=== PATIENT | female | born 1970 | race Caucasian/White ===

== ENCOUNTER 2017-05-17 07:35 | Emergency (ER) | payer OTHER ==
[~2017-05-17] VITALS: Ht 154.9 cm; Wt 72.7 kg
[~2017-05-17 07:35] MED LIST: LISI-660 PO; METF500T4 PO; SITA25 PO; VITAD400 PO
[2017-05-17] MEDS ORDERED: PROZ10 PO (07:44)
[2017-05-17 07:48] LABS: GLUCOSE,POINT OF CARE 348 MG/DL (70-110)
[2017-05-17] MEDS ORDERED: SODIUM CHLORIDE 0.9% 1,000 ML IV ONE (08:15)
[2017-05-17] MEDS ORDERED: ONDANSETRON HCL 4 MG/2 ML VIAL IVP ONE (08:15)
[2017-05-17] MEDS ORDERED: KETOROLAC TROMETHAMINE 30 MG/ML VIAL IVP ONE (08:15)
[2017-05-17 08:45] LABS: BASOPHILS % (AUTO) 0.6 % (0.0-2.0); EOSINOPHILS % (AUTO) 1.1 % (1.0-6.0); HEMATOCRIT 41.7 % (36-46); HEMOGLOBIN 14.4 g/dL (12.0-16.0); LYMPHOCYTES # (AUTO) 1.4 K/uL (1.0-4.8); LYMPHOCYTES % (AUTO) 23.9 % (22.0-44.0); MEAN CORPUSCULAR HGB CONC 34.5 G/dL (31.0-37.0); MEAN CORPUSCULAR VOLUME 87 fL (80-100); MONOCYTES # (AUTO) 0.4 K/uL (0.1-1.0); MONOCYTES % (AUTO) 7.8 % (2.0-9.0); NEUTROPHILS # (AUTO) 3.8 K/uL (1.8-7.7); NEUTROPHILS % (AUTO) 66.6 % (40.0-70.0); PLATELET COUNT (AUTO) 225 K/uL (150-450); RED CELL DISTRIBUTION WIDTH 12.6 % (11.5-14.5); WHITE BLOOD COUNT (AUTO) 5.7 K/uL (4.5-11.0)
[2017-05-17 08:52] LABS: ANION GAP 9 mmol/L (8-16); CALCIUM, TOTAL 8.6 mg/dL (8.8-10.5); CARBON DIOXIDE 27 mmol/L (22-29); CHLORIDE 101 mmol/L (98-107); CREATININE 0.82 mg/dL (0.60-1.30); GLOMERULAR FILTR. RATE CALC > 60 mL/min (>60); SODIUM SERUM 137 mmol/L (136-145); UREA NITROGEN, BLOOD 12 mg/dL (7-18)
[2017-05-17 08:58] LABS: ALANINE AMINOTRANSFERASE 27 U/L (12-78); ALBUMIN 3.8 g/dL (3.4-5.0); ASPARTATE AMINOTRANSFERASE 12 U/L (15-37); BILIRUBIN,TOTAL 0.8 mg/dL (0.1-1.0); TOTAL PROTEIN, SERUM 7.4 g/dL (6.4-8.2)
[2017-05-17] MEDS ORDERED: INSULIN REGULAR, HUMAN 100 UNITS/ML IVP ONE (09:45)
[2017-05-17 09:47] LABS: APPEARANCE,URINE CLEAR (CLEAR); GLUCOSE, URINE (UA) >=1000 mg/dL (NEGATIVE); KETONES,URINE NEGATIVE (NEGATIVE); LEUKOCYTE ESTERASE ,URINE NEGATIVE (NEGATIVE); OCCULT BLOOD,URINE NEGATIVE (NEGATIVE); PROTEIN,URINE NEGATIVE (NEGATIVE)
[2017-05-17 09:53] LABS: ADD UA MICROSCOPIC YES
[2017-05-17 09:54] LABS: RBC,URINE None Seen /HPF (0-2); SQUAMOUS EPITHELIAL CELL,UR Moderate /LPF (None Seen); WBC,URINE None Seen /HPF (0-5)
[2017-05-17 10:23] VITALS: BP 131/85
== END 2017-05-17 11:02 | disposition home or self-care (01) ==
LOC: EMS 07:38
DX: J40 Bronchitis, not specified as acute or chronic (principal); R10.11 Right upper quadrant pain; R11.2 Nausea with vomiting, unspecified; E11.65 Type 2 diabetes mellitus with hyperglycemia; J45.909 Unspecified asthma, uncomplicated; I10 Essential (primary) hypertension; Z79.4 Long term (current) use of insulin; Z77.22 Contact with and (suspected) exposure to environmental tobacco smoke (acute) (chronic)
CPT/HCPCS: 36415; 71010; 76700; 80053; 81001; 82962; 83690; 84703; 85025; 96361; 96374; 96375; 99285; J1815; J1885; J2405; J7030

== ENCOUNTER 2019-03-21 07:19 | Emergency (ER) | payer MEDICAID, OTHER ==
[~2019-03-21] VITALS: Ht 154.9 cm; Wt 68.2 kg
[~2019-03-21 07:19] MED LIST changes: +METF-960 PO; -METF500T4 PO; +PROZ10 PO
[2019-03-21 07:34] LABS: GLUCOSE,POINT OF CARE 323 MG/DL (70-110)
[2019-03-21] MEDS ORDERED: CYCLOBENZAPRINE HCL 10 MG TABLET PO ONE (08:00)
[2019-03-21] MEDS ORDERED: KETOROLAC TROMETHAMINE 30 MG/ML VIAL IVP ONE (08:00)
[2019-03-21] MEDS ORDERED: SODIUM CHLORIDE 0.9% 1,000 ML IV ONE (08:00)
[2019-03-21 09:54] LABS: APPEARANCE,URINE CLEAR (CLEAR); BILIRUBIN,URINE NEGATIVE (NEGATIVE); GLUCOSE, URINE (UA) >=1000 mg/dL (NEGATIVE); KETONES,URINE NEGATIVE (NEGATIVE); LEUKOCYTE ESTERASE ,URINE NEGATIVE (NEGATIVE); NITRATE,URINE NEGATIVE (NEGATIVE); OCCULT BLOOD,URINE NEGATIVE (NEGATIVE); PH,URINE 6.5 (5.0-8.0); PROTEIN,URINE NEGATIVE (NEGATIVE); UROBILINOGEN,URINE 0.2 mg/dL (<=1.0)
[2019-03-21 10:11] LABS: BACTERIA,URINE None Seen /HPF (None Seen); RBC,URINE None Seen /HPF (0-2); SQUAMOUS EPITHELIAL CELL,UR Moderate /LPF (None Seen); WBC,URINE None Seen /HPF (0-5)
[2019-03-21 10:35] VITALS: BP 108/70
[2019-03-21 11:19] LABS: GLUCOSE,POINT OF CARE 260 MG/DL (70-110)
== END 2019-03-21 10:39 | disposition home or self-care (01) ==
LOC: EMS 07:22
DX: M54.5 Low back pain (principal); J45.909 Unspecified asthma, uncomplicated; E11.9 Type 2 diabetes mellitus without complications; I10 Essential (primary) hypertension; Z77.22 Contact with and (suspected) exposure to environmental tobacco smoke (acute) (chronic); Z79.84 Long term (current) use of oral hypoglycemic drugs; Z79.899 Other long term (current) drug therapy
CPT/HCPCS: 81001; 82962; 96374; 99283; J1885; J7030

== ENCOUNTER 2024-12-17 12:16 | Inpatient (IN) | payer MEDICARE, MEDICAID ==
[~2024-12-17] VITALS: Ht 167.6 cm; Wt 66.2 kg
[~2024-12-17 12:16] MED LIST changes: +CHOL400T56 PO; +FLUO10CA24 PO; -LISI-660 PO; +LISI-892 PO; +METF-1211 PO; -METF-960 PO; -PROZ10 PO; -VITAD400 PO
[2024-12-17 12:45] VITALS: O2SAT 98
[2024-12-17] MEDS ORDERED: ZOLPIDEM TARTRATE 10 MG TABLET PO PRN (12:45)
[2024-12-17] MEDS ORDERED: GABA-1404 PO (12:56)
[2024-12-17] MEDS ORDERED: TOPI-97 PO (12:57)
[2024-12-17] MEDS ORDERED: MELO-107 PO (12:57)
[2024-12-17] MEDS ORDERED: DOCU100C33 PO (12:57)
[2024-12-17] MEDS ORDERED: BENZ-247 PO (12:57)
[2024-12-17] MEDS ORDERED: DICL100G60 TP (12:57)
[2024-12-17] MEDS ORDERED: CHOL100062 PO (12:57)
[2024-12-17] MEDS ORDERED: LISI10TA24 PO (12:57)
[2024-12-17] MEDS ORDERED: CARI3CAP PO (12:57)
[2024-12-17] MEDS ORDERED: BACL10TA PO (12:57)
[2024-12-17] MEDS ORDERED: METF-446 PO (12:57)
[2024-12-17] MEDS ORDERED: ATOR10TA69 PO (12:57)
[2024-12-17] MEDS ORDERED: FLUO-418 PO (12:57)
[2024-12-17 13:06] LABS: BASOPHILS % (AUTO) 1.2 % (0.0-2.0); HEMATOCRIT 38.9 % (36-46); HEMOGLOBIN 12.8 g/dL (12.0-16.0); LYMPHOCYTES # (AUTO) 1.6 K/uL (1.0-4.8); LYMPHOCYTES % (AUTO) 26.4 % (22.0-44.0); MEAN CORPUSCULAR HEMOGLOBIN 28.6 pg (26.0-34.0); MEAN CORPUSCULAR VOLUME 87 fL (80-100); MONOCYTES # (AUTO) 0.5 K/uL (0.1-1.0); MONOCYTES % (AUTO) 7.8 % (2.0-9.0); NEUTROPHILS # (AUTO) 3.8 K/uL (1.8-7.7); NEUTROPHILS % (AUTO) 61.6 % (40.0-70.0); PLATELET COUNT (AUTO) 206 K/uL (150-450); RED BLOOD CELL COUNT(AUTO) 4.48 MIL/uL (4.00-5.20); RED CELL DISTRIBUTION WIDTH 13.1 % (11.5-14.5); WHITE BLOOD COUNT (AUTO) 6.2 K/uL (4.5-11.0)
[2024-12-17 13:14] LABS: ANION GAP 8 mmol/L (8-16); CALCIUM, TOTAL 8.9 mg/dL (8.8-10.5); CARBON DIOXIDE 26 mmol/L (22-29); CHLORIDE 107 mmol/L (98-107); GLOMERULAR FILTR. RATE CALC > 60 mL/min (>60); GLUCOSE,RANDOM 138 mg/dL (70-110); POTASSIUM 4.2 mmol/L (3.5-5.1); SODIUM SERUM 141 mmol/L (136-145); UREA NITROGEN, BLOOD 14 mg/dL (7-18)
[2024-12-17 13:28] LABS: ALCOHOL, BLOOD (SERUM) < 3 mg/dL (0-10)
[2024-12-17 14:15] LABS: COVID AG,FIA SOURCE NASAL SWAB
[2024-12-17 14:59] LABS: SARS-COV2 (COVID) ANTIGEN,FIA Negative (Negative)
[2024-12-17] MEDS: LORazepam 2 MG TABLET PO PRN (16:57)
[2024-12-17] MEDS: HALOPERIDOL 5 MG TABLET PO PRN (16:57)
[2024-12-17] MEDS: BACITRACIN 28 GM OINTMENT TP ONE (17:11)
[2024-12-17 17:35] LABS: APPEARANCE,URINE HAZY (CLEAR); BILIRUBIN,URINE NEGATIVE (NEGATIVE); COLOR,URINE LIGHT YELLOW (YELLOW); GLUCOSE, URINE (UA) NEGATIVE (NEGATIVE); KETONES,URINE NEGATIVE (NEGATIVE); LEUKOCYTE ESTERASE ,URINE TRACE (NEGATIVE); NITRATE,URINE NEGATIVE (NEGATIVE); OCCULT BLOOD,URINE NEGATIVE (NEGATIVE); PROTEIN,URINE NEGATIVE (NEGATIVE); UROBILINOGEN,URINE <=1.0 mg/dL (<=1.0)
[2024-12-17 17:44] LABS: ALCOHOL, URINE DRUG SCREEN NEGATIVE (NEGATIVE); AMPHET/METH SCREEN,URINE POSITIVE (NEGATIVE); BARBITURATE SCREEN, URINE NEGATIVE (NEGATIVE); BENZODIAZEPINES SCREEN,URINE NEGATIVE (NEGATIVE); CANNABINOID SCREEN,URINE NEGATIVE (NEGATIVE); COCAINE SCREEN,URINE NEGATIVE (NEGATIVE); METHADONE SCREEN, URINE NEGATIVE (NEGATIVE); OPIATE SCREEN,URINE NEGATIVE (NEGATIVE); PHENCYCLIDINE SCREEN,URINE NEGATIVE (NEGATIVE)
[2024-12-17 17:49] LABS: BACTERIA,URINE Many /HPF (None Seen); RBC,URINE 0-2 /HPF (0-2); SQUAMOUS EPITHELIAL CELL,UR Moderate /LPF (None Seen)
[2024-12-17 21:16] VITALS: BP 117/72; PULSE 69; RESP 18; TEMP 97.8; O2SAT 98
[2024-12-17] MEDS ORDERED: INFLUENZA VIRUS VACCINE TVS (6MO+) 2024-25/PF 45 MCG/0.5 ML SYRINGE IM. ONE (21:30)
[2024-12-18 00:51] LABS: GLUCOMETER DEV NAME(LOC) BV3S.; GLUCOSE,POINT OF CARE 102 MG/DL (70-110)
[2024-12-18 08:13] VITALS: RESP 16
[2024-12-18 09:14] LABS: HEMOGLOBIN A1C 7.5 % (3.8-5.6)
[2024-12-18 09:19] LABS: CHOL/HDL RATIO 1.8 (3.9-5.7)
[2024-12-18] MEDS ORDERED: ONDANSETRON 4 MG TABLET PO PRN (09:45)
[2024-12-18] MEDS ORDERED: LOPERAMIDE HCL 2 MG CAPSULE PO PRN (09:45)
[2024-12-18] MEDS ORDERED: MAG HYDROX/ALUMINUM HYD/SIMETH ES 30 ML SUSPENSION UDCUP PO PRN (09:45)
[2024-12-18] MEDS ORDERED: PETROLATUM,WHITE 28 GM JELLY TP PRN (09:45)
[2024-12-18] MEDS ORDERED: NICOTINE 14 MG/24 HOUR PATCH TD PRN (09:45)
[2024-12-18] MEDS ORDERED: MAGNESIUM HYDROXIDE SUSPENSION 30 ML UDCUP PO PRN (09:45)
[2024-12-18] MEDS ORDERED: CloNIDine HCL 0.1 MG TABLET PO PRN (09:45)
[2024-12-18] MEDS ORDERED: IBUPROFEN 400 MG TABLET PO PRN (09:45)
[2024-12-18] MEDS ORDERED: ACETAMINOPHEN 325 MG TABLET PO PRN (09:45)
[2024-12-18] MEDS ORDERED: DOCUSATE SODIUM 100 MG CAPSULE PO PRN (09:45)
[2024-12-18] MEDS ORDERED: GuaiFENesin/D-METHORPHAN [SUGAR-FREE] 200-20MG/10 ML SYRUP UDCUP PO PRN (09:45)
[2024-12-18 13:12] VITALS: RESP 17
[2024-12-18] MEDS: MELOXICAM 7.5 MG TABLET PO PRN (13:12)
[2024-12-18] MEDS: BENZTROPINE MESYLATE 1 MG TABLET PO SCH (13:12)
[2024-12-18] MEDS: GABAPENTIN 300 MG CAPSULE PO SCH (13:13)
[2024-12-18 14:12] VITALS: RESP 18
[2024-12-18] MEDS: MetFORMIN HCL 500 MG TABLET PO SCH (16:46)
[2024-12-18] MEDS: CEPHALEXIN MONOHYDRATE 500 MG CAPSULE PO SCH (18:07)
[2024-12-18 20:03] VITALS: BP 113/66; PULSE 85; RESP 17; TEMP 97.7
[2024-12-18] MEDS: FLUoxetine HCL 20 MG CAPSULE PO SCH (20:39)
[2024-12-18] MEDS: QUEtiapine FUMARATE 100 MG TABLET PO SCH (20:42)
[2024-12-18] MEDS ORDERED: QUEtiapine FUMARATE 100 MG TABLET PO SCH (21:00)
[2024-12-19 08:28] VITALS: BP 120/68; PULSE 79; RESP 16; TEMP 97.9; O2SAT 97
[2024-12-19] MEDS: ATORVASTATIN CALCIUM 10 MG TABLET PO SCH (08:34)
[2024-12-19] MEDS: CHOLECALCIFEROL (VIT D3) 1,000 UNITS [25 MCG] TABLET PO SCH (08:34)
[2024-12-19] MEDS: LISINOPRIL 10 MG TABLET PO SCH (08:34)
[2024-12-19] MEDS ORDERED: CEPHALEXIN MONOHYDRATE 500 MG CAPSULE PO SCH (09:00)
[2024-12-19 09:21] LABS: HEMOGLOBIN A1C 7.3 % (3.8-5.6)
[2024-12-19 09:25] LABS: CHOL/HDL RATIO 1.8 (3.9-5.7); THYROID STIMULATING HORMONE 0.07 uIU/mL (0.36-3.74)
[2024-12-19 20:03] VITALS: BP 128/63; PULSE 78; RESP 19; TEMP 97.8; O2SAT 98
[2024-12-20] VITALS (7 sets, daily range): BP systolic 77–116; BP diastolic 46–84; PULSE 72; RESP 16–19; TEMP 96.9–97.1; O2SAT 97
[2024-12-20] MEDS: ALBUTEROL SULFATE HFA 90 MCG/PUFF 8 GM INHALER IH PRN (17:40)
[2024-12-21] MEDS: LISINOPRIL 5 MG TABLET PO SCH (09:00)
[2024-12-21 09:03] VITALS: BP 101/70; PULSE 68; RESP 16; TEMP 97.3; O2SAT 96
[2024-12-21 09:03] LABS: HEMOGLOBIN A1C 7.1 % (3.8-5.6)
[2024-12-21 09:19] LABS: THYROID STIMULATING HORMONE 0.04 uIU/mL (0.36-3.74)
[2024-12-21] MEDS: BACITRACIN 28 GM OINTMENT TP SCH (15:36)
[2024-12-21 20:15] VITALS: BP 110/72; PULSE 68; RESP 16; TEMP 98.2; O2SAT 97
[2024-12-22 08:06] VITALS: BP 100/64; PULSE 79; RESP 16; TEMP 97.4; O2SAT 98
[2024-12-22 20:04] VITALS: BP 98/70; PULSE 73; RESP 16; TEMP 98.3; O2SAT 96
[2024-12-23 08:21] VITALS: BP 101/60; PULSE 77; RESP 16; TEMP 96.9; O2SAT 98
[2024-12-23 20:03] VITALS: BP 107/72; PULSE 98; RESP 16; TEMP 98.1; O2SAT 99
[2024-12-24 08:53] VITALS: BP 106/67; PULSE 77; RESP 16; TEMP 97.9; O2SAT 98
[2024-12-24] MEDS ORDERED: LISI5TAB21 PO (10:03)
[2024-12-24] MEDS ORDERED: QUET50TA24 PO (10:04)
[2024-12-24] MEDS ORDERED: CEPH-558 PO (10:06)
== END 2024-12-24 14:06 | disposition home or self-care (01) | DRG 885 ==
LOC: EMS 12:16 → B3A 18:34
PROVIDERS: ADMIT Psychiatry & Neurology Child & Adolescent Psychiatry; ATTEND Psychiatry & Neurology Child & Adolescent Psychiatry
PROC: GZ56ZZZ Individual Psychotherapy, Supportive (ICD-10-PCS; principal; 2024-12-18)
PROC: GZHZZZZ Group Psychotherapy (ICD-10-PCS; 2024-12-18)
DX: F20.0 Paranoid schizophrenia (principal); E11.9 Type 2 diabetes mellitus without complications; I10 Essential (primary) hypertension; J45.909 Unspecified asthma, uncomplicated; Z20.822 Contact with and (suspected) exposure to COVID-19; F15.10 Other stimulant abuse, uncomplicated; K21.9 Gastro-esophageal reflux disease without esophagitis; E55.9 Vitamin D deficiency, unspecified; G47.00 Insomnia, unspecified
CPT/HCPCS: 80048; 80061; 80307; 81001; 82962; 83036; 84443; 84703; 85025; 87077; 87086; 87186; 99285; G0480; J3535